=== PATIENT | female | born 1970 | race Caucasian/White ===

== ENCOUNTER 2017-01-18 14:43 | Emergency (ER) | payer OTHER | END 2017-01-18 16:05 | disposition home or self-care (01) | LOC: FER 14:43 | DX: J20.9 Acute bronchitis, unspecified (principal); J45.909 Unspecified asthma, uncomplicated; J44.9 Chronic obstructive pulmonary disease, unspecified; Z87.891 Personal history of nicotine dependence; Z88.2 Allergy status to sulfonamides; Z88.5 Allergy status to narcotic agent; Z79.51 Long term (current) use of inhaled steroids | CPT/HCPCS: 71020; 87450; 87804; 87899; 94640; J2930 ==